=== PATIENT | male | born 1965 | race Caucasian/White ===

== ENCOUNTER 2020-10-31 07:00 | Outpatient (CLI) | payer OTHER ==
[2020-10-30 13:59] VITALS: BMI 26.6
[2020-10-31 13:27] VITALS: BP 138/94; TEMP 98.3
== END 2020-10-31 09:35 | disposition home or self-care (01) ==
LOC: RAD 07:00
PROVIDERS: ATTEND Neurological Surgery
DX: M47.16 Other spondylosis with myelopathy, lumbar region (principal); M54.5 Low back pain; M48.061 Spinal stenosis, lumbar region without neurogenic claudication; N28.1 Cyst of kidney, acquired; Z98.1 Arthrodesis status
CPT/HCPCS: 72100; 72132; 77002

== ENCOUNTER 2021-04-23 15:30 | Outpatient (CLI) | payer OTHER ==
[2021-04-23 16:14] LABS: Hemoglobin 13.3 g/dL (13.5-17.5); Mean Corpuscular HGB CONC 34.2 g/dL (32.0-36.0); Mean Corpuscular Hemoglobin 33.9 pg (27.0-33.0); Mean Corpuscular Volume 99.2 fl (81.2-95.1); Platelet Count 298 10x3/uL (150-450); RBC Distribution Width 11.7 % (11.5-14.5); Red Blood Cell (RBC) Count 3.92 10x6/uL (4.32-5.72); White Blood Cell (WBC) Count 7.4 10x3/uL (3.5-10.5)
[2021-04-23 17:37] LABS: Anion Gap 12 mmol/L (10-20); BUN (Urea Nitrogen) 15 mg/dL (8.4-25.7); Calc. Creatinine Clearance 0 mL/min (70-130); Calcium 9.1 mg/dL (7.8-10.44); Carbon Dioxide 26 mmol/L (22-29); Chloride 104 mmol/L (98-107); Glucose 91 mg/dL (70-105); Potassium 4.2 mmol/L (3.5-5.1); Sodium 138 mmol/L (136-145)
[2021-04-24 21:09] LABS: SARS-CoV-2 PCR by NAA Not Detected (NotDetected)
== END 2021-04-23 15:31 | disposition home or self-care (01) ==
LOC: LABBT 15:30
PROVIDERS: ATTEND Neurological Surgery
DX: Z01.818 Encounter for other preprocedural examination (principal); M48.062 Spinal stenosis, lumbar region with neurogenic claudication; Z20.822 Contact with and (suspected) exposure to COVID-19
CPT/HCPCS: 80048; 85027; 93005; 93010; U0003; U0005

== ENCOUNTER 2021-04-28 05:56 | Observation (INO) | payer OTHER ==
[2021-04-22 10:46] VITALS: BMI 26.6
[2021-04-28] MEDS ORDERED: HYDROmorphone 2 MG/ML VIAL ONE (06:59)
[2021-04-28] MEDS ORDERED: Fentanyl 100 MCG/2 ML VIAL ONE ×3 (06:59→10:13)
[2021-04-28] MEDS ORDERED: Midazolam HCl 2 mg/2 ml Vial ONE (07:19)
[2021-04-28] MEDS ORDERED: Ketorolac Tromethamine 30 MG/ML VIAL ONE (07:36)
[2021-04-28] MEDS ORDERED: ePHEDrine 50 MG/ML VIAL ONE (07:36)
[2021-04-28] MEDS ORDERED: PROPOFOL 200 MG/20 ML VIAL ONE (07:36)
[2021-04-28] MEDS ORDERED: Glycopyrrolate 0.2 MG/ML 5 ML SYRINGE ONE (07:36)
[2021-04-28] MEDS ORDERED: Rocuronium Bromide 10 MG/ML (10ML VIAL) ONE (07:36)
[2021-04-28] MEDS ORDERED: diphenhydrAMINE 50 MG/ML VIAL ONE (07:36)
[2021-04-28] MEDS ORDERED: Dexamethasone 20 MG/5 ML VIAL ONE (07:36)
[2021-04-28] MEDS ORDERED: Lidocaine 1% PF 5 ML VIAL ONE (07:36)
[2021-04-28] MEDS ORDERED: PHENYLEPHRINE-NS 100 MCG/ML 10 ML SYRINGE ONE (07:36)
[2021-04-28] MEDS ORDERED: Ondansetron PF 4 MG/2 ML Vial ONE (07:36)
[2021-04-28] MEDS ORDERED: HYDROmorphone 2 MG/ML VIAL SLOW IVP PRN (09:59)
[2021-04-28] MEDS ORDERED: Promethazine HCl 25 MG/ML VIAL IVPB PRN (09:59)
[2021-04-28] MEDS ORDERED: Promethazine HCl 25 MG/ML VIAL IM PRN ×2 (09:59→12:30)
[2021-04-28] MEDS ORDERED: Ondansetron HCl/PF 4 MG/2 ML Vial IVP PRN (09:59)
[2021-04-28] MEDS ORDERED: diphenhydrAMINE 50 MG/ML VIAL IVP SCH (10:00)
[2021-04-28] MEDS ORDERED: diphenhydrAMINE 50 MG/ML VIAL IVP PRN ×2 (10:03→12:30)
[2021-04-28] MEDS ORDERED: HYDROmorphone 0.5 MG/0.5 ML SYRINGE ONE ×4 (10:09→11:01)
[2021-04-28] MEDS ORDERED: Tamsulosin HCl 0.4 MG CAP ONE (10:10)
[2021-04-28] MEDS ORDERED: tiZANidine HCl 4 MG TAB ONE (10:10)
[2021-04-28] MEDS ORDERED: Promethazine 25 MG TAB PO PRN (12:30)
[2021-04-28] MEDS ORDERED: Promethazine HCl 12.5 MG SUPP PR PRN (12:30)
[2021-04-28] MEDS ORDERED: Ondansetron PF 4 MG/2 ML Vial IM PRN (12:30)
[2021-04-28] MEDS ORDERED: Acetaminophen 650 MG Suppository PR PRN (12:30)
[2021-04-28] MEDS ORDERED: Acetaminophen 325 MG TAB PO PRN (12:30)
[2021-04-28] MEDS ORDERED: diphenhydrAMINE 25 MG CAP PO PRN (12:30)
[2021-04-28] MEDS ORDERED: Mag-Al 1200 mg/1200 mg/30 ML UDCUP PO PRN (12:30)
[2021-04-28] MEDS ORDERED: Milk Of Magnesia 30 ML UDCUP PO PRN (12:30)
[2021-04-28] MEDS ORDERED: traMADol HCl 50 MG TAB PO PRN ×2 (12:30)
[2021-04-28] MEDS ORDERED: Morphine 4 MG/ML VIAL SLOW IVP PRN ×2 (14:32→14:45)
[2021-04-28] MEDS: CEFAZOLIN 2 GM in Sodium Chloride 0.9% 100 ML IVPB SCH (15:58)
[2021-04-28] MEDS ORDERED: tiZANidine HCl 4 MG TAB PO PRN (16:00)
[2021-04-28] MEDS: Ketorolac Tromethamine 30 MG/ML VIAL IVP SCH (17:49)
[2021-04-29] MEDS ORDERED: hydrOXYzine 25 MG TAB PO PRN (00:15)
[2021-04-29] MEDS: Ketorolac Tromethamine 30 MG/ML VIAL IVP SCH ×2 (00:25→05:29)
[2021-04-29] MEDS: CEFAZOLIN 2 GM in Sodium Chloride 0.9% 100 ML IVPB SCH (00:26)
[2021-04-29] MEDS ORDERED: Tamsulosin HCl 0.4 MG CAP PO SCH (06:00)
[2021-04-29] MEDS ORDERED: CEFAZOLIN 2 GM in Premix Bag 1 BAG IVPB SCH (08:00)
[2021-04-29 08:06] VITALS: BP 110/70; TEMP 98.1
[2021-04-29] MEDS ORDERED: Cyanocobalamin (Vitamin B-12) 1,000 MCG TAB PO SCH (09:00)
[2021-04-29] MEDS ORDERED: Lisinopril 20 MG TAB PO SCH (09:00)
[2021-04-29] MEDS ORDERED: Multivit, Therapeutic 1 TAB PO SCH (09:00)
[2021-04-29] MEDS ORDERED: Amlodipine 10 MG TAB PO SCH (09:00)
== END 2021-04-29 10:01 | disposition home or self-care (01) ==
LOC: SDC 05:56 → ONC 10:23
PROVIDERS: ADMIT Neurological Surgery; ATTEND Neurological Surgery
PROC: 0QJY0ZZ Inspection of Lower Bone, Open Approach (ICD-10-PCS; principal; 2021-04-28)
PROC: 0SG10J1 Fusion of 2 or more Lumbar Vertebral Joints with Synthetic Substitute, Posterior Approach, Posterior Column, Open Approach (ICD-10-PCS; 2021-04-28)
DX: M48.062 Spinal stenosis, lumbar region with neurogenic claudication (principal); I10 Essential (primary) hypertension; F17.290 Nicotine dependence, other tobacco product, uncomplicated; Z79.899 Other long term (current) drug therapy; Z88.5 Allergy status to narcotic agent; Z98.1 Arthrodesis status
CPT/HCPCS: 76000; 96374; 96375; 96376; C1713; G0378; J0690; J1100; J1170; J1200; J1885; J2250; J2405; J2704; J3010; J3370; J3490

== ENCOUNTER 2021-05-13 12:22 | Outpatient (CLI) | payer OTHER | END 2021-05-13 12:23 | disposition home or self-care (01) | LOC: TBSIIMAG 12:22 | PROVIDERS: ATTEND Neurological Surgery | DX: M48.062 Spinal stenosis, lumbar region with neurogenic claudication (principal); M47.816 Spondylosis without myelopathy or radiculopathy, lumbar region; Z98.890 Other specified postprocedural states | CPT/HCPCS: 72100 ==

== ENCOUNTER 2021-07-01 09:56 | Outpatient (CLI) | payer OTHER | END 2021-07-01 09:57 | disposition home or self-care (01) | LOC: TBSIIMAG 09:56 | PROVIDERS: ATTEND Neurological Surgery | DX: M51.36 Other intervertebral disc degeneration, lumbar region (principal); M47.816 Spondylosis without myelopathy or radiculopathy, lumbar region; Z98.890 Other specified postprocedural states | CPT/HCPCS: 72100 ==